=== PATIENT | female | born 1950 | race Two or more races ===

== ENCOUNTER 2018-01-28 06:28 | Outpatient (CLI) | payer OTHER ==
[~2018-01-28 06:28] MED LIST: BREO ELLIPTA I1 EACH; SINGULAIR10 MG; SYNTHROID112 MCG
== END 2018-01-28 06:44 | disposition home or self-care (01) ==
LOC: LAB 06:28
DX: D64.89 Other specified anemias (principal); E88.89 Other specified metabolic disorders; D68.8 Other specified coagulation defects; N39.0 Urinary tract infection, site not specified; A49.02 Methicillin resistant Staphylococcus aureus infection, unspecified site

== ENCOUNTER 2018-01-28 06:33 | Outpatient (CLI) | payer OTHER | END 2018-01-28 06:46 | disposition home or self-care (01) | LOC: EKG 06:33 | DX: I49.8 Other specified cardiac arrhythmias (principal) ==

== ENCOUNTER 2018-01-28 08:42 | Outpatient (CLI) | payer OTHER | END 2018-01-28 08:55 | disposition home or self-care (01) | LOC: RAD 501 08:42 | DX: M79.652 Pain in left thigh (principal); M79.605 Pain in left leg; Z76.89 Persons encountering health services in other specified circumstances ==

== ENCOUNTER 2018-02-09 08:55 | Inpatient (IN) | payer OTHER ==
[~2018-02-09] VITALS: Ht 149.9 cm; Wt 54.4 kg
[~2018-02-09 08:55] MED LIST changes: +ALBUTEROL1.25 MG/3 IH; +BREO ELLIPTA 21 EACH IH; +CRESTOR40 MG PO; +EQ GLUCOSAMINE1 EACH PO; -SYNTHROID112 MCG; +SYNTHROID112 MCG PO; +ZETIA10 MG PO; +[UNRECOGNIZED DRUG - SUPPLY] PO
[2018-02-24] MEDS ORDERED: XARELTO10 MG PO (08:10)
== END 2018-02-24 14:44 | DRG 470 ==
LOC: O/R 02-21 05:44 → SURH 02-21 05:44
PROVIDERS: Orthopaedic Surgery
PROC: 3E0T3BZ Introduction of Anesthetic Agent into Peripheral Nerves and Plexi, Percutaneous Approach (ICD-10-PCS; 2018-02-21)
PROC: 3E0F7GC Introduction of Other Therapeutic Substance into Respiratory Tract, Via Natural or Artificial Opening (ICD-10-PCS; 2018-02-21)
PROC: 0SRD0J9 Replacement of Left Knee Joint with Synthetic Substitute, Cemented, Open Approach (ICD-10-PCS; principal; 2018-02-21 07:00)
DX: M17.12 Unilateral primary osteoarthritis, left knee (principal); D62 Acute posthemorrhagic anemia; M85.462 Solitary bone cyst, left tibia and fibula; J45.909 Unspecified asthma, uncomplicated; J11.1 Influenza due to unidentified influenza virus with other respiratory manifestations

== ENCOUNTER 2018-03-22 11:42 | Emergency (ER) | payer OTHER ==
[~2018-03-22] VITALS: Ht 149.9 cm; Wt 50.8 kg
[~2018-03-22 11:42] MED LIST changes: +XARELTO10 MG PO
[2018-03-22] MEDS ORDERED: ZANTAC150 MG PO (14:37)
[2018-03-22] MEDS ORDERED: INTESTINEX680 M1 PO (14:37)
== END 2018-03-22 17:04 | disposition home or self-care (01) ==
LOC: ER 11:42
DX: K29.60 Other gastritis without bleeding (principal); R53.1 Weakness; Z96.652 Presence of left artificial knee joint

== ENCOUNTER 2018-05-29 08:08 | Outpatient (CLI) | payer OTHER ==
[~2018-05-29 08:08] MED LIST changes: +INTESTINEX680 M1 PO; +ZANTAC150 MG PO
== END 2018-05-29 13:50 | disposition home or self-care (01) ==
LOC: RAD 08:08
DX: M25.562 Pain in left knee (principal)

== ENCOUNTER 2018-08-04 08:45 | Outpatient (CLI) | payer OTHER | END 2018-08-04 08:50 | disposition home or self-care (01) | LOC: RAD 08:45 | DX: M12.861 Other specific arthropathies, not elsewhere classified, right knee (principal); M17.11 Unilateral primary osteoarthritis, right knee ==

== ENCOUNTER 2018-09-02 07:57 | Outpatient (CLI) | payer OTHER | END 2018-09-02 08:10 | disposition home or self-care (01) | LOC: SONOGRAMA 07:57 → MAMO-SONO 08:15 | DX: C64.2 Malignant neoplasm of left kidney, except renal pelvis (principal) ==

== ENCOUNTER 2018-10-04 09:37 | Outpatient (CLI) | payer OTHER | END 2018-10-04 10:04 | disposition home or self-care (01) | LOC: NUCLEAR 09:37 | DX: M81.0 Age-related osteoporosis without current pathological fracture (principal) ==

== ENCOUNTER 2019-10-16 09:48 | Outpatient (CLI) | payer OTHER | END 2019-10-16 10:09 | disposition home or self-care (01) | LOC: SONOGRAMA 09:48 → MAMO-SONO 10:15 | DX: C64.2 Malignant neoplasm of left kidney, except renal pelvis (principal); R31.29 Other microscopic hematuria; R07.89 Other chest pain ==

== ENCOUNTER 2020-08-16 07:13 | Emergency (ER) | payer OTHER ==
[~2020-08-16] VITALS: Ht 149.9 cm; Wt 50.8 kg
[2020-08-16] MEDS ORDERED: KETO10TA2 PO (16:38)
[2020-08-16] MEDS ORDERED: LEVSIN/SL0.125 MG SL (16:38)
[2020-08-16] MEDS ORDERED: PEPCID AC20 MG PO (16:38)
[2020-08-16] MEDS ORDERED: CIPRO500 MG PO (16:38)
[2020-08-16] MEDS ORDERED: FLAGYL500MG PO (16:38)
[2020-08-16] MEDS ORDERED: INTESTINEX680 M1 PO (16:38)
== END 2020-08-16 17:00 | disposition home or self-care (01) ==
LOC: ER 07:13
DX: K57.92 Diverticulitis of intestine, part unspecified, without perforation or abscess without bleeding (principal)

== ENCOUNTER 2020-09-24 07:30 | Outpatient (CLI) | payer OTHER ==
[~2020-09-24 07:30] MED LIST changes: +CIPRO500 MG PO; +FLAGYL500MG PO; +KETO10TA2 PO; +LEVSIN/SL0.125 MG SL; +PEPCID AC20 MG PO
== END 2020-09-24 07:47 | disposition home or self-care (01) ==
LOC: RAD 07:30 → TOM 08:15
PROVIDERS: ATTEND Urology
DX: K57.90 Diverticulosis of intestine, part unspecified, without perforation or abscess without bleeding (principal); D38.1 Neoplasm of uncertain behavior of trachea, bronchus and lung; R31.1 Benign essential microscopic hematuria; N20.0 Calculus of kidney; C64.2 Malignant neoplasm of left kidney, except renal pelvis; Z96.652 Presence of left artificial knee joint

== ENCOUNTER 2021-02-07 09:32 | Outpatient (CLI) | payer OTHER | END 2021-02-07 09:52 | disposition home or self-care (01) | LOC: TOM 09:32 | PROVIDERS: ATTEND Internal Medicine Pulmonary Disease | DX: R91.1 Solitary pulmonary nodule (principal) ==

== ENCOUNTER 2021-03-12 07:54 | Outpatient (CLI) | payer OTHER | END 2021-03-12 07:56 | disposition home or self-care (01) | LOC: NUCLEAR 07:54 | PROVIDERS: ATTEND Internal Medicine Pulmonary Disease | DX: R91.1 Solitary pulmonary nodule (principal); C65.9 Malignant neoplasm of unspecified renal pelvis | CPT/HCPCS: 78815; A9552 ==

== ENCOUNTER 2021-06-10 08:09 | Outpatient (CLI) | payer OTHER | END 2021-06-10 08:27 | disposition home or self-care (01) | LOC: MAMO-SONO 08:09 | PROVIDERS: ATTEND Internal Medicine Cardiovascular Disease | DX: N63.11 Unspecified lump in the right breast, upper outer quadrant (principal) ==

== ENCOUNTER → 2021-07-02 13:09 | Outpatient (CLI) | payer OTHER | END | disposition home or self-care (01) | LOC: NUCLEAR 13:00 | PROVIDERS: ATTEND Internal Medicine Cardiovascular Disease | DX: M81.0 Age-related osteoporosis without current pathological fracture (principal); E55.9 Vitamin D deficiency, unspecified ==

== ENCOUNTER 2021-09-18 07:08 | Outpatient (CLI) | payer OTHER | END 2021-09-18 07:11 | disposition home or self-care (01) | LOC: SONOGRAMA 07:08 → MAMO-SONO 07:15 | PROVIDERS: ATTEND Urology | DX: C64.2 Malignant neoplasm of left kidney, except renal pelvis (principal); R31.0 Gross hematuria ==

== ENCOUNTER 2022-06-09 07:30 | Outpatient (CLI) | payer OTHER | END 2022-06-09 07:40 | disposition home or self-care (01) | LOC: RAD 07:30 | PROVIDERS: ATTEND Orthopaedic Surgery Orthopaedic Trauma | DX: M17.11 Unilateral primary osteoarthritis, right knee (principal) ==

== ENCOUNTER 2022-12-18 08:01 | Outpatient (CLI) | payer OTHER | END 2022-12-18 08:05 | disposition home or self-care (01) | LOC: SONOGRAMA 08:01 | PROVIDERS: ATTEND Urology | DX: R31.1 Benign essential microscopic hematuria (principal); C64.2 Malignant neoplasm of left kidney, except renal pelvis ==

== ENCOUNTER → 2023-09-17 | Outpatient (CLI) | payer OTHER | END | disposition home or self-care (01) | LOC: MRI 09:50 | PROVIDERS: ATTEND Internal Medicine Cardiovascular Disease | DX: M19.90 Unspecified osteoarthritis, unspecified site (principal) | CPT/HCPCS: 73721 ==

== ENCOUNTER 2025-01-24 08:51 | Outpatient (CLI) | payer OTHER | END 2025-01-24 08:57 | disposition home or self-care (01) | LOC: SONOGRAMA 08:51 | PROVIDERS: ATTEND Urology | DX: C64.2 Malignant neoplasm of left kidney, except renal pelvis (principal); R31.1 Benign essential microscopic hematuria ==